=== PATIENT | female | born 1995 | race Caucasian/White ===

== ENCOUNTER 2021-11-05 23:25 | Emergency (ER) | payer BC ==
[~2021-11-05] VITALS: Ht 160 cm; Wt 47.6 kg
--- NOTE | 2021-11-05 23:40 | NUR ---
Patient arrived at the ER with c/o of spider bite that occured yesterday. Patient stated it was itchy yesterday and had a scant amount of whitish discharge coming out of the bite rich when she pinch it and noticed today that the affected area is reddened and rich streak upward. Denies any itching at this time.
--- NOTE | 2021-11-05 23:42 | NUR ---
Dr. Lockwood on bedside for MSE.
[2021-11-05] MEDS ORDERED: ERYT-135 PO (23:58)
[2021-11-06] MEDS ORDERED: ERYTHROMYCIN ETHYLSUCC 200 MG/5 ML SUSPENSION 100ML PO ONE
[2021-11-06 00:05] VITALS: BP 127/73
--- NOTE | 2021-11-06 00:05 | NUR ---
Patient discharged to home in stable condition. Written and verbal after care instructions given. Patient verbalizes understanding of instructions. Stressed follow up or return to ER for worsening s/s. Patient ambulated fr the ER with steady gait. All belongings with patient.
[2021-11-06] MEDS ORDERED: ERYTHROMYCIN ETHYLSUCC 200 MG/5 ML SUSPENSION 100ML ONE (00:06)
== END 2021-11-06 00:06 | disposition home or self-care (01) ==
LOC: ER 23:50
DX: L03.113 Cellulitis of right upper limb (principal)
CPT/HCPCS: A4663